=== PATIENT | male | born 1995 | race Two or more races ===

== ENCOUNTER 2019-06-01 01:12 | Emergency (ER) | payer OTHER ==
[~2019-06-01] VITALS: Ht 182.9 cm; Wt 90.0 kg
[2019-06-01] MEDS ORDERED: ALBU8HFA IH (01:44)
[2019-06-01 02:29] VITALS: BP 130/71
== END 2019-06-01 03:31 | disposition home or self-care (01) ==
LOC: EMS 01:14
DX: R07.89 Other chest pain (principal); J45.909 Unspecified asthma, uncomplicated; F17.210 Nicotine dependence, cigarettes, uncomplicated; Z79.899 Other long term (current) drug therapy
CPT/HCPCS: 93005